=== PATIENT | male | born 1955 | race Caucasian/White ===

== ENCOUNTER 2024-07-23 11:33 | Observation (INO) | payer MEDICARE, BC ==
[2024-07-23] MEDS: Lactated Ringers 1,000 ML IV ONE (12:19)
[2024-07-23 12:32] LABS: BASOPHILS PERCENT AUTO 0.2 % (0.0-1.0); EOSINOPHILS PERCENT AUTO 0.1 % (1.0-3.0); HEMATOCRIT 40.3 % (40.0-54.0); HEMOGLOBIN 14.4 g/dL (14.0-18.0); MEAN CORPUSCULAR HEMOGLOBIN 30.6 pg (27.0-34.0); MEAN CORPUSCULAR HGB CONC 35.7 g/dL (33.0-35.0); MEAN CORPUSCULAR VOLUME 85.7 fL (80-100); MONOCYTES PERCENT AUTO 11.9 % (2-8); NEUTROPHILS PERCENT AUTO 77.8 % (42.2-75.2); PLATELET COUNT,PLT 267 10^3/uL (150-450); WHITE BLOOD CELL COUNT,WBC 11.7 10^3/uL (5.0-10.0)
[2024-07-23 12:57] LABS: LACTIC ACID 1.9 mmol/L (0.4-2.0)
[2024-07-23] MEDS: Magnesium Sulfate/Water Premix 2 GM in Premix Bag 1 BAG IV ONE (13:01)
[2024-07-23 13:04] LABS: A/G RATIO 1.1; ALANINE AMINOTRANSFERASE,ALT 42 U/L (16-63); ALKALINE PHOSPHATASE 98 U/L (46-116); ANION GAP 17.8 mEq/L (7-13); ASPARTATE AMNIOTRANSFERASE,AST 37 U/L (15-37); BILIRUBIN TOTAL 1.1 mg/dL (0.2-1.0); BLOOD UREA NITROGEN,BUN 14 mg/dL (7-18); BUN/CREATININE RATIO 10.9 (No establ ref range); CARBON DIOXIDE,CO2 26 mmol/L (21-32); CHLORIDE,CL 82 mmol/L (98-107); CREATININE 1.28 mg/dL (0.70-1.30); GLUCOSE RANDOM 106 mg/dL (70-99); POTASSIUM,K 2.8 mmol/L (3.5-5.1); PROTEIN TOTAL,TP 7.6 g/dL (6.4-8.2); SODIUM,NA 123 mmol/L (136-145)
[2024-07-23 13:06] LABS: ESTIMATED GFR 61 mL/min (>=60)
[2024-07-23] MEDS: Potassium Chloride 10 MEQ Tab.ER PO ONE (13:15)
[2024-07-23] MEDS: Potassium Chloride 20 MEQ in Premix Bag 1 BAG IV ONE (13:57)
[2024-07-23 14:13] LABS: B-TYPE NATRIURETIC PEPTIDE,BNP 17 pg/ml (0-100)
[2024-07-23 15:03] LABS: APPEARANCE,URINE CLEAR (CLEAR); BILIRUBIN,URINE NEGATIVE (NEGATIVE); COLOR,URINE YELLOW (YELLOW); GLUCOSE,URINE NEGATIVE (NEGATIVE); KETONES,URINE 40 (NEGATIVE); LEUKOCYTE ESTERASE,URINE NEGATIVE (NEGATIVE); NITRITE,URINE NEGATIVE (NEGATIVE); OCCULT BLOOD,URINE TRACE-INTACT (NEGATIVE); PROTEIN,URINE 30 (NEGATIVE); UROBILINOGEN,URINE 0.2 mg/dL (0.2-1.0)
[2024-07-23 15:17] LABS: AMORPHOUS SEDIMENT,URINE FEW /HPF (NOT SEEN); BACTERIA,URINE FEW /HPF (0-FEW/HPF); EPITHELIAL CELLS,URINE RARE /HPF (NOT SEEN); HYALINE CASTS,URINE MODERATE; WBC,URINE 0-5 /HPF (0-5/HPF)
[2024-07-23 15:19] LABS: FINE GRANULAR CASTS,URINE RARE /LPF (NOT SEEN); MUCUS,URINE FEW /LPF (NOT SEEN)
[2024-07-23 17:51] LABS: ANION GAP 18.7 mEq/L (7-13); BLOOD UREA NITROGEN,BUN 16 mg/dL (7-18); CALCIUM 8.8 mg/dL (8.5-10.1); CARBON DIOXIDE,CO2 23 mmol/L (21-32); CHLORIDE,CL 84 mmol/L (98-107); CREATININE 1.37 mg/dL (0.70-1.30); GLUCOSE RANDOM 112 mg/dL (70-99); POTASSIUM,K 3.7 mmol/L (3.5-5.1); SODIUM,NA 122 mmol/L (136-145)
[2024-07-23 17:52] LABS: ESTIMATED GFR 57 mL/min (>=60)
[2024-07-23] MEDS ORDERED: Magnesium Hydroxide 400 MG/5 ML Susp 30 ML Cup PO PRN (18:58)
[2024-07-23] MEDS ORDERED: Ondansetron 4 MG/2 ML SDV IVPUSH PRN (18:58)
[2024-07-23] MEDS ORDERED: Polyethylene Glycol 3350 Powder 17 GM Packet PO PRN (18:58)
[2024-07-23] MEDS ORDERED: Albuterol/Ipratropium 3.0-0.5 MG/3 ML Neb Soln NEB PRN (18:58)
[2024-07-23] MEDS ORDERED: HYDROmorphone 0.5 MG/0.5 ML Syringe IVPUSH PRN (18:58)
[2024-07-23] MEDS ORDERED: Acetaminophen 325 MG Tab PO PRN (18:58)
[2024-07-23] MEDS ORDERED: Acetaminophen/oxyCODONE 325-5 MG Tab PO PRN (18:58)
[2024-07-23] MEDS ORDERED: Naloxone 2 MG/2 ML Syringe IVPUSH PRN (18:58)
[2024-07-23] MEDS ORDERED: Sennosides/Docusate Sodium 50-8.6 MG Tab PO PRN (18:58)
[2024-07-23] MEDS ORDERED: Metoprolol Tartrate 5 MG/5 ML SDV IVPUSH PRN (23:53)
[2024-07-23] MEDS ORDERED: hydrALAZINE 20 MG/ML SDV IVPUSH PRN (23:53)
[2024-07-24] MEDS: Melatonin 3 MG Tab PO PRN (01:06)
[2024-07-24] MEDS: LORazepam 1 MG Tab PO ONE (01:06)
[2024-07-24] MEDS: Pantoprazole 40 MG Tab.CR PO SCH (05:20)
[2024-07-24 06:58] LABS: HEMATOCRIT 36.4 % (40.0-54.0); HEMOGLOBIN 12.7 g/dL (14.0-18.0); MEAN CORPUSCULAR HEMOGLOBIN 30.2 pg (27.0-34.0); MEAN CORPUSCULAR HGB CONC 34.9 g/dL (33.0-35.0); MEAN CORPUSCULAR VOLUME 86.5 fL (80-100); PLATELET COUNT,PLT 226 10^3/uL (150-450); RED BLOOD CELL COUNT 4.21 10^6/uL (4.6-6.2); WHITE BLOOD CELL COUNT,WBC 8.6 10^3/uL (5.0-10.0)
[2024-07-24 07:01] LABS: BASOPHILS PERCENT AUTO 0.2 % (0.0-1.0); EOSINOPHILS PERCENT AUTO 0.5 % (1.0-3.0); LYMPHOCYTES PERCENT AUTO 19.7 % (20.5-50.1); MONOCYTES PERCENT AUTO 17.4 % (2-8); NEUTROPHILS PERCENT AUTO 62.2 % (42.2-75.2)
[2024-07-24 07:31] LABS: ALBUMIN 3.2 g/dL (3.4-5.0); ANION GAP 15.1 mEq/L (7-13); BILIRUBIN TOTAL 0.9 mg/dL (0.2-1.0); BUN/CREATININE RATIO 15.8 (No establ ref range); CALCIUM 8.4 mg/dL (8.5-10.1); CREATININE 0.95 mg/dL (0.70-1.30); EST CRCL DRUG DOSING (CG) 79.83 mL/min; MAGNESIUM 2.4 mg/dL (1.8-2.4); POTASSIUM,K 3.1 mmol/L (3.5-5.1); PROTEIN TOTAL,TP 6.4 g/dL (6.4-8.2)
[2024-07-24 08:02] LABS: BAND PERCENT MAN 3 %; EOSINOPHILS PERCENT MAN 1 % (1-3); LYMPHOCYTES % ATYPICAL MANUAL 2 %; LYMPHOCYTES PERCENT MAN 18 % (20-50); MONOCYTES PERCENT MAN 9 % (2-8); SEG NEUTROPHILS PERCENT MAN 67 % (42-75)
[2024-07-24] MEDS: Potassium Chloride 10 MEQ Tab.ER PO SCH (08:29)
[2024-07-24 11:21] LABS: ANION GAP 9.3 mEq/L (7-13); CALCIUM 8.3 mg/dL (8.5-10.1); CREATININE 0.99 mg/dL (0.70-1.30); EST CRCL DRUG DOSING (CG) 76.6 mL/min; POTASSIUM,K 3.3 mmol/L (3.5-5.1)
[2024-07-24] MEDS ORDERED: LORazepam 0.5 MG Tab PO PRN (13:33)
[2024-07-24 16:55] LABS: ANION GAP 13.7 mEq/L (7-13); CALCIUM 8.7 mg/dL (8.5-10.1); CREATININE 1.06 mg/dL (0.70-1.30); EST CRCL DRUG DOSING (CG) 71.54 mL/min; POTASSIUM,K 2.7 mmol/L (3.5-5.1)
[2024-07-24] MEDS: Potassium Chloride 10 MEQ Tab.ER PO ONE (17:22)
[2024-07-24 17:29] VITALS: BP 121/76; PULSE 86
== END 2024-07-24 17:50 | disposition home or self-care (01) ==
LOC: DL.ED 11:33 → DL.MS 18:05
PROVIDERS: ADMIT Internal Medicine; ATTEND Internal Medicine
DX: E87.1 Hypo-osmolality and hyponatremia (principal); N17.9 Acute kidney failure, unspecified; I10 Essential (primary) hypertension; E78.5 Hyperlipidemia, unspecified; Z98.84 Bariatric surgery status; Z87.891 Personal history of nicotine dependence
CPT/HCPCS: 36415; 71045; 80048; 80053; 81001; 83605; 83735; 83880; 83930; 83935; 84300; 84484; 85025; 93005; 93880; 96361; 96365; 96366; 96367; 99222; 99239; 99285; A9270; G0378; J3475; J3480; J7120

== ENCOUNTER 2024-10-30 14:35 | Emergency (ER) | payer MEDICARE, BC ==
[2024-10-30] MEDS: NS + KCl 20mEq/L 1,000 ML IV SCH (15:10)
[2024-10-30 15:30] LABS: ALBUMIN 3.6 g/dL (3.4-5.0); BILIRUBIN TOTAL 0.3 mg/dL (0.2-1.0); BUN/CREATININE RATIO 11.8 (No establ ref range); CALCIUM 8.5 mg/dL (8.5-10.1); CREATININE 1.44 mg/dL (0.70-1.30); EST CRCL DRUG DOSING (CG) 50.84 mL/min; PROTEIN TOTAL,TP 7.2 g/dL (6.4-8.2)
[2024-10-30 15:35] LABS: ANION GAP 12.8 mEq/L (7-13); POTASSIUM,K 2.8 mmol/L (3.5-5.1)
[2024-10-30 16:53] VITALS: BP 115/76; PULSE 68
== END 2024-10-30 18:00 | disposition home or self-care (01) ==
LOC: DL.ED 14:35
DX: N17.9 Acute kidney failure, unspecified (principal); I10 Essential (primary) hypertension; E78.00 Pure hypercholesterolemia, unspecified; Z90.49 Acquired absence of other specified parts of digestive tract; Z79.899 Other long term (current) drug therapy; Z79.82 Long term (current) use of aspirin
CPT/HCPCS: 36415; 80053; 96365; 99284; J3480